=== PATIENT | male | born 1995 | race Caucasian/White ===

== ENCOUNTER 2021-12-18 14:17 | Emergency (ER) | payer OTHER ==
[2021-12-18 14:26] VITALS: BP 122/75; PULSE 64; RESP 18; TEMP 98.3
[2021-12-18] MEDS ORDERED: CLINDAMYCIN 300 MG in DEXTROSE 5% IN WATER 50 ML IVPB STA ×2 (17:24)
[2021-12-18] MEDS ORDERED: SODIUM CHLORIDE 0.9% 1,000 ML IV STA (17:24)
[2021-12-18] MEDS ORDERED: DEXAMETHASONE SOD PHOSPHATE 10 MG/ML 1 ML VIAL IVP STA (17:24)
--- NOTE | 2021-12-18 18:24 | CT ---
EXAMINATION TYPE: CT soft tissue neck w con CT DLP: 217.8 mGycm, Automated exposure control for dose reduction was used. DATE OF EXAM: 12/18/2021 5:54 PM COMPARISON: None. CLINICAL INDICATION:Male, 26 years old with history of evaluate for ludwigs; difficulty swallowing, c urrent tooth infection TECHNIQUE: Standard enhanced CT of the neck following intravenous administration of 100 cc of Isovue 300. Axial sections with coronal and sagittal reformats were obtained. FINDINGS: Brain: Visualized portions are grossly unremarkable. Orbits: Unremarkable Sinuses: Grossly unremarkable. Spaces of the neck: The bilateral palatine tonsils are enlarged with mild mass effect upon the airway . The adenoids are enlarged. The airways are grossly patent. No evidence of organizing fluid collecti on. Musculoskeletal: No acute fracture is identified. The left second molar demonstrates cavity with austen cent fat stranding changes. No convincing evidence of organizing fluid collection at this time. Lymph nodes: Multiple nonenlarged lymph nodes are seen along both anterior chains of the neck. Vascular structures: Visualized major arteries are patent without evidence of aneurysm. Thoracic Inlet/airway: Airway is patent. The lung apices are clear. Soft tissues/Thyroid: Thyroid and remainder of the soft tissues are unremarkable. Other: none. IMPRESSION 1. Enlarged palatine tonsils and adenoids likely representing upper respiratory infection. 2. Left lower second molar cavity with fluid with change in the adjacent soft tissues. No convincing evidence of organizing fluid collection are evaluation is limited given early arterial phase of cont rast. No evidence to suggest ludwigs angina.
--- NOTE | 2021-12-18 18:50 | ED ---
General Adult HPI - General Chief complaint: Dental/Oral Stated complaint: dental pain Time Seen by Provider: 12/18/21 17:02 Source: patient, RN notes reviewed, old records reviewed Mode of arrival: ambulatory Limitations: no limitations - History of Present Illness Initial comments: Patient is a 26-year-old male with no significant past medical history presents emergency Department complaining of a left-sided dental infection. States he believes one of his molars is infected and is been unable to get into see his dentist. He is seeking antibiotics. States he is having some mild difficulty with swallowing. Denies any swelling of his tongue or posterior throat. Denies any difficulty with breathing. Denies any wheezing. Denies any nausea, v omiting, abdominal pain. Denies any fevers. His no other acute complaints at this time. His seeking antibiotics but was also concerned regarding his difficulty swallowing. The incident secondary to the pain, but is uncertain. - Related Data Previous Rx's Medication Instructions Recorded Clindamycin [Cleocin] 450 mg PO Q8HR 10 Days #90 cap 12/18/21 Allergies Allergy/AdvReac Type Severity Reaction Status Date / Time No Known Allergies Allergy Verified 12/18/21 18:48 Review of Systems ROS Statement: Those systems with pertinent positive or pertinent negative responses have been documented in the HPI. Review of Systems: CONST: Denies fever EYES: Denies blurry vision ENT: Endorses dental pain C/V: Denies Chest pain RESP: Denies shortness of breath GI: Denies abdominal pain : Denies dysuria SKIN: Denies rash. MSK: Denies joint pain. NEURO: Denies headache ROS Other: All systems not noted in ROS Statement are negative. Past Medical History Past Medical History: No Reported History History of Any Multi-Drug Resistant Organisms: None Reported Past Surgical History: No Surgical Hx Reported Past Psychological History: No Psychological Hx Reported Smoking Status: Former smoker Past Alcohol Use History: None Reported Past Drug Use History: None Reported General Exam - General Exam Comments Initial Comments: General: Appears in mild distress secondary to pain. HEAD: Normal with no signs of head trauma. EYES: PERRLA, EOMI, conjunctiva normal, no discharge. ENT: Hearing grossly intact. Patient does have swelling along the gumline near the 16th tooth. No obvious abscess. Mild edema palpated in the lower cheek. Before the mouth swelling or tongue swelling patient. Posterior oropharynx appears within normal limits and uvula is midline. No stridor auscultated. RESPIRATORY: Clear breath sounds bilaterally. No wheezes, rales, or rhonchi. C/V: Regular rate and rhythm. S1 and S2 auscultated, no edema, peripheral pulses 2+ and intact throughout ABD: Abd is soft, nontender, nondistended EXT: Normal range of motion, no obvious deformity SKIN: No rashes or lesions observed on exposed skin. NEURO: Alert and oriented 4. Limitations: no limitations Course Vital Signs 12/18/21 14:24 Temperature 98.3 F Pulse Rate 64 Respiratory 18 Rate Blood Pressure 122/75 O2 Sat by Pulse 98 Oximetry Medical Decision Making - Medical Decision Making Based on the patient's presentation and physical exam, does appear is having a dental infection. However he is complaining of difficulty swallowing and I cannot rule out possible extension of the infection at this time. Therefore I did recommend to ensure there are no signs of worsening infection such as Anam's angina that we obtain a CT of the neck. He was in agreement this plan. He will be given IV fluid bolus as well as steroids and clindamycin. He was in agreement this plan. CT imaging did not reveal Anam's angina. There is sign of infection on tooth #18. I discussed the findings with the patient. I believe it is safe for him to follow-up with a dentist. He was in agreement with this plan. He will be given an antibiotic prescription. He will use Motrin [id number] for analgesia. I will provide the patient with a prescription for clindamycin 450 mg 3 times a day for 10 days. I instructed the patient to follow up with their PCP in the next 3 days. I provided contact information for follow up with Dr. frazier. I explained that the patient should return to the emergency department if they experience any worsening symptoms. Strict return precautions were discussed with the patient. The patient expressed understanding of these instructions. I answered all questions that the patient had. The patient was discharged home in good condition with their prescriptions and follow up information. Disposition Clinical Impression: Dental infection Disposition: HOME SELF-CARE Condition: Good Instructions (If sedation given, give patient instructions): Dental Abscess (ED), Toothache (ED) Prescriptions: Clindamycin [Cleocin] 450 mg PO Q8HR 10 Days #90 cap Is patient prescribed a controlled substance at d/c from ED?: No Referrals: None,Stated [Primary Care Provider] - 1-2 days Kirk Frazier DDS [STAFF PHYSICIAN] - 1-2 days
== END 2021-12-18 19:36 | disposition home or self-care (01) ==
LOC: EC 14:17
DX: K08.89 Other specified disorders of teeth and supporting structures (principal); Z87.891 Personal history of nicotine dependence
CPT/HCPCS: 99283; 96365; 96375; 70491; J1100; Q9967

== ENCOUNTER 2023-02-17 19:02 | Emergency (ER) | payer BC, OTHER ==
[2023-02-17 19:24] VITALS: BP 119/80; PULSE 100; RESP 20; TEMP 98.2
--- NOTE | 2023-02-17 22:38 | ED ---
General Adult HPI - General Chief complaint: Allergic Reaction Stated complaint: reaction to rx Time Seen by Provider: 02/17/23 22:13 Source: patient, RN notes reviewed, old records reviewed Mode of arrival: ambulatory Limitations: no limitations - History of Present Illness Initial comments: 27-year-old male presents for evaluation of suspected drug reaction. Patient began Latuda 4 days earlier and taken 2 doses. He developed symptoms including hallucination, anxiety, headache and dry mouth. He discontinued this medication 2 days ago and began BuSpar. He states that the BuSpar is helping significantly with his anxiety. He denies suicidal or homicidal ideation. He did report some difficulty breathing with the Latuda, which has resolved. - Related Data Previous Rx's Medication Instructions Recorded Clindamycin [Cleocin] 450 mg PO Q8HR 10 Days #90 cap 12/18/21 Allergies Allergy/AdvReac Type Severity Reaction Status Date / Time lurasidone [From Latuda] AdvReac Intermediate Hallucinati Verified 02/17/23 22:36 ons Review of Systems ROS Statement: Those systems with pertinent positive or pertinent negative responses have been documented in the HPI. ROS Other: All systems not noted in ROS Statement are negative. Past Medical History Past Medical History: No Reported History History of Any Multi-Drug Resistant Organisms: None Reported Past Surgical History: No Surgical Hx Reported Past Psychological History: Anxiety, Bipolar Smoking Status: Former smoker Past Alcohol Use History: None Reported Past Drug Use History: None Reported General Exam Limitations: no limitations General appearance: alert, in no apparent distress Head exam: Present: atraumatic, normocephalic Eye exam: Present: normal appearance, PERRL ENT exam: Present: normal exam Neck exam: Present: normal inspection. Absent: tenderness, meningismus Respiratory exam: Present: normal lung sounds bilaterally. Absent: respiratory distress, wheezes Cardiovascular Exam: Present: regular rate, normal rhythm GI/Abdominal exam: Present: soft, distended. Absent: tenderness Neurological exam: Present: alert, oriented X3 Psychiatric exam: Absent: homicidal ideation, suicidal ideation Skin exam: Present: warm, dry, intact. Absent: cyanosis, diaphoretic Course Vital Signs 02/17/23 19:20 Temperature 98.2 F Pulse Rate 100 Respiratory 20 Rate Blood Pressure 119/80 O2 Sat by Pulse 99 Oximetry Medical Decision Making - Medical Decision Making Was pt. sent in by a medical professional or institution (Dr., PA, UNDERWRITER, urgent care, hospital, or care home...) When possible be specific @ -No Did you speak to anyone other than the patient for history (EMS, parent, family, police, friend...)? What history was obtained from this source @ -No Did you review nursing and triage notes (agree or disagree)? Why? @ -I reviewed and agree with nursing and triage notes Were old charts reviewed (outside hosp., previous admission, EMS record, old EKG, old radiological studies, urgent care reports/EKG's, care home records)? Report findings @ -No old charts were reviewed Differential Diagnosis (chest pain, altered mental status, abdominal pain women, abdominal pain men, vaginal bleeding, weakness, fever, dyspnea, syncope, headache, dizziness, GI bleed, back pain, seizure, CVA, palpatations, mental health, musculoskeletal)? @ ALLERGIC reaction, adverse drug reaction, side effect of medication EKG interpreted by me (3pts min.). @ -As above X-rays interpreted by me (1pt min.). @ -None done CT interpreted by me (1pt min.). @ -None done U/S interpreted by me (1pt. min.). @ -None done What testing was considered but not performed or refused? (CT, X-rays, U/S, labs)? Why? @ -None What meds were considered but not given or refused? Why? @ -None Did you discuss the management of the patient with other professionals (professionals i.e. KHADRA Nazario, UNDERWRITER, lab, RT, psych nurse, social insurance adviser, print line inspector, teacher, campus security officer, manager case)? Give summary @ -No Was smoking cessation discussed for >3mins.? @ -No Was critical care preformed (if so, how long)? @ -No Were there social determinants of health that impacted care today? How? (Homelessness, low income, unemployed, alcoholism, drug addiction, transportation, low edu. Level, literacy, decrease access to med. care, correction, rehab)? @ -No Was there de-escalation of care discussed even if they declined (Discuss DNR or withdrawal of care, Hospice)? DNR status @ -No What co-morbidities impacted this encounter? (DM, HTN, Smoking, COPD, CAD, Cancer, CVA, ARF, Chemo, Hep., AIDS, mental health diagnosis, sleep apnea, morbid obesity)? @ -[Anxiety, depression Was patient admitted / discharged? Hospital course, mention meds given and route, prescriptions, significant lab abnormalities, going to OR and other pertinent info. @ -27-year-old male with adverse reaction to Latuda, patient was already prescribed BuSpar and has an appointment with his psychiatrist tomorrow for reevaluation. I do not see any tongue or lip swelling. Lungs are clear. No signs of ALLERGIC reaction at this time. This likely adverse reaction to this medication. It is listed on his adverse reaction last 2 medications. He is given strict return parameters. Undiagnosed new problem with uncertain prognosis? @ -No Drug Therapy requiring intensive monitoring for toxicity (Heparin, Nitro, Insulin, Cardizem)? @ -No Were any procedures done? @ -No Diagnosis/symptom? @ Adverse drug reaction Acute, or Chronic, or Acute on Chronic? @ Acute Uncomplicated (without systemic symptoms) or Complicated (systemic symptoms)? @ -Uncomplicated Side effects of treatment? @ -No Exacerbation, Progression, or Severe Exacerbation? @ -No Poses a threat to life or bodily function? How? (Chest pain, [place], AR, pneumonia, PE, COPD, DKA, ARF, appy, cholecystitis, CVA, Diverticulitis, Homicidal, Suicidal, threat to staff... and all critical care pts) @ -No Disposition Clinical Impression: Adverse drug reaction Disposition: HOME SELF-CARE Condition: Good Instructions (If sedation given, give patient instructions): Adverse Drug Reaction (ED) Additional Instructions: Please follow up with your psychiatrist tomorrow Is patient prescribed a controlled substance at d/c from ED?: No Referrals: None,Stated [Primary Care Provider] - 1-2 days Time of Disposition: 22:37
== END 2023-02-17 22:49 | disposition home or self-care (01) ==
LOC: EC 19:02
DX: R51.9 Headache, unspecified (principal); T43.595A Adverse effect of other antipsychotics and neuroleptics, initial encounter; Z86.59 Personal history of other mental and behavioral disorders; Z87.891 Personal history of nicotine dependence
CPT/HCPCS: 99283